=== PATIENT | male | born 1975 | race Caucasian/White ===

== ENCOUNTER 2017-03-03 17:04 | Inpatient (IN) | payer OTHER ==
--- NOTE | 2017-03-03 17:15 | PDOC ---
Rapid Medical Evaluation Medical Evaluation: 03/03/17 17:12 I have performed a brief in-person evaluation of this patient. The patient presents with a chief complaint of: R sided flank pain, hx of kidney stones 2003. +nausea, +chills, denies vomiting/diarrhea, took 400 mg motrin this am Pertinent physical exam findings: R CVA tenderness I have ordered the following: UA, UC, renal ultrasound The patient will proceed to the ED for further evaluation.
[2017-03-03 18:05] LABS: URINE APPEARANCE CLEAR; URINE BILIRUBIN NEGATIVE (NEGATIVE); URINE BLOOD 2+ (NEGATIVE); URINE COLOR LTYELLOW; URINE GLUCOSE (UA) NEGATIVE (NEGATIVE); URINE KETONE NEGATIVE (NEGATIVE); URINE NITRITE NEGATIVE (NEGATIVE); URINE PROTEIN NEGATIVE (NEGATIVE); URINE UROBILINOGEN NEGATIVE mg/dL (0.2-1.0)
[2017-03-03 18:24] LABS: URINE MUCUS RARE; URINE RBC 41; URINE WBC 1
[2017-03-03] MEDS ORDERED: KETOROLAC TROMETHAMINE 15 MG/ML VIAL IVPUSH ONE (18:51)
--- NOTE | 2017-03-03 19:23 | PDOC ---
Attending Attestation - Resident Resident Name: Sanket Ko - ED Attending Attestation I have performed the following: I have examined & evaluated the patient, The case was reviewed & discussed with the resident, I agree w/resident's findings & plan, Exceptions are as noted - HPI HPI: 03/03/17 19:24 41y/o M with h/o kidney stones p/w R flank pain that began this AM, similar to past renal colic. no injuries - Physicial Exam PE: 03/03/17 19:25 VSS, HR 88 + R cvat abd otherwise soft/nt/nd bs nl lungs clear - Medical Decision Making 03/03/17 19:25 41 y/o M with h/o kidney stones p/w his kidney stone pain, R flank began this AM. Well appearing, but still in some discomfort. UA with + blood, no infection Sono shows stones with mild hydro CTAP ordered, can d/c on pain meds and f/u
--- NOTE | 2017-03-03 19:31 | PDOC ---
History of Present Illness - General Chief Complaint: Pain, Acute Stated Complaint: PAIN Time Seen by Provider: 03/03/17 17:15 History Source: Patient Exam Limitations: No Limitations - History of Present Illness Initial Comments: 03/03/17 19:26 41M with history of kidney stones presents with right-sided flank pain since this am. Feels like stone pain to him. Took Motrin and felt better. Pain currently "not too bad" Urinated 4 times today. Some pain on urination. No hematuria. Past History - Past Medical History Allergies/Adverse Reactions: Allergies Allergy/AdvReac Type Severity Reaction Status Date / Time No Known Allergies Allergy Verified 03/03/17 17:13 Home Medications: Ambulatory Orders NK [No Known Home Medication] 03/03/17 COPD: No Kidney Stones: Yes - Suicide/Smoking/Psychosocial Hx Smoking History: Never smoked Hx Alcohol Use: No Drug/Substance Use Hx: No Review of Systems - Review of Systems Able to Perform ROS?: Yes Is the patient limited Tristanian proficient: No Constitutional: No: Symptoms Reported HEENTM: No: Symptoms Reported Respiratory: No: Symptoms reported Cardiac (ROS): No: Symptoms Reported ABD/GI: No: Symptoms Reported : Yes: See HPI, Flank Pain Musculoskeletal: No: Symptoms Reported Integumentary: No: Symptoms Reported *Physical Exam - Vital Signs Last Vital Signs Temp Pulse Resp BP Pulse Ox 98.2 F 99 H 16 144/82 99 03/03/17 17:11 03/03/17 17:11 03/03/17 17:11 03/03/17 17:11 03/03/17 17:11 - Physical Exam General Appearance: Yes: Nourished, Appropriately Dressed. No: Apparent Distress HEENT: positive: EOMI, ESTELITA, Normal ENT Inspection Neck: positive: Trachea midline, Normal Thyroid. negative: Tender Respiratory/Chest: positive: Lungs Clear, Normal Breath Sounds. negative: Chest Tender Cardiovascular: positive: Regular Rhythm, Regular Rate, S1, S2 Gastrointestinal/Abdominal: positive: Flat, Soft. negative: Tender Male Genitalia: negative: hematuria Musculoskeletal: positive: CVA Tenderness (R) Neurologic: positive: Fully Oriented, Alert, Normal Mood/Affect, Normal Response , Motor Strength 5/5 ED Treatment Course - ADDITIONAL ORDERS Additional order review: Laboratory Results 03/03/17 17:52 Urine Color Ltyellow Urine Appearance Clear Urine pH 5.0 Ur Specific [place] 1.024 Urine Protein Negative Urine Glucose (UA) Negative Urine Ketones Negative Urine Blood 2+ H Urine Nitrite Negative Urine Bilirubin Negative Urine Urobilinogen Negative Urine RBC 41 Urine WBC 1 Urine Mucus Rare - RADIOLOGY Radiology Studies Ordered: Category Date Time Status SPIRAL- RENAL-STONE CT [CT] Stat CT Scan 03/03/17 18:59 Ordered - Medications Given in the ED: ED Medications Discontinued Medications Generic Name Dose Route Start Last Admin Trade Name Vianey PRN Reason Stop Dose Admin Ketorolac Tromethamine 15 mg 03/03/17 18:51 03/03/17 19:05 Toradol Injection - IVPUSH 03/03/17 18:52 15 mg ONCE ONE Administration Medical Decision Making - Medical Decision Making 03/03/17 19:32 41M with hx of kidney stones presents to the ED with right flank pain. Ua positive for blood U/S + for non-obstructing kidney stone and mild hydronephrosis Pending spiral Ct renal to evaluate for stone size and location. Pain controlled with ketorolac. 03/03/17 19:34 [address] out to Dr. Calix *DC/Admit/Observation/Transfer Diagnosis at time of Disposition: Nephrolithiasis - Referrals Referrals: Mitesh Bui MD [Primary Care Provider] - - Patient Instructions - Post Discharge Activity
[2017-03-03] MEDS ORDERED: SODIUM CHLORIDE 1,000 ML IV STA (20:38)
--- NOTE | 2017-03-03 20:44 | PDOC ---
*Physical Exam - Vital Signs Last Vital Signs Temp Pulse Resp BP Pulse Ox 98.2 F 99 H 16 144/82 99 03/03/17 17:11 03/03/17 17:11 03/03/17 17:11 03/03/17 17:11 03/03/17 17:11 - Physical Exam Comments: 03/03/17 20:38 Gen:[id number], nad abd: soft, nt/nd +bs, minimal cva ttp, sitting up, comfortable ED Treatment Course - LABORATORY CBC & Chemistry Diagram: 03/03/17 20:37 03/03/17 20:37 - ADDITIONAL ORDERS Additional order review: Laboratory Results 03/03/17 17:52 Urine Color Ltyellow Urine Appearance Clear Urine pH 5.0 Ur Specific [place] 1.024 Urine Protein Negative Urine Glucose (UA) Negative Urine Ketones Negative Urine Blood 2+ H Urine Nitrite Negative Urine Bilirubin Negative Urine Urobilinogen Negative Urine RBC 41 Urine WBC 1 Urine Mucus Rare - Medications Given in the ED: ED Medications Discontinued Medications Generic Name Dose Route Start Last Admin Trade Name Vianey PRN Reason Stop Dose Admin Ketorolac Tromethamine 15 mg 03/03/17 18:51 03/03/17 19:05 Toradol Injection - IVPUSH 03/03/17 18:52 15 mg ONCE ONE Administration Medical Decision Making - Medical Decision Making 03/03/17 20:39 a/p: 41yo male with flank pain - signed out pending CT abd/pelvis -ct shows 8x7mm stone. Pt states pain controlled at this time. Labs sent and are pending. Moderate [place] on ct. No nausea or pain at this time. Will discuss with urology - Dr. Villarreal. 03/03/17 21:51 pt with Cr 1.5 and elevated WBC. Will keep for observation. Will call Dr. Partida - PMD is Dr. Bui. Pt agrees with the plan. *DC/Admit/Observation/Transfer Diagnosis at time of Disposition: Nephrolithiasis, Hydronephrosis - Discharge Dispostion Condition at time of disposition: Stable - Referrals Referrals: Mitesh Bui MD [Primary Care Provider] - - Patient Instructions - Post Discharge Activity
[2017-03-03 20:56] LABS: BASOPHIL 0.4 % (0-2.0); EOSINOPHIL 0.4 % (0-4.5); MCH 29.2 pg (25.7-33.7); MCHC 34.6 g/dl (32.0-35.9); MEAN CELL VOLUME 84.5 fl (80-96); MEAN PLT VOLUME 7.7 fl (7.5-11.1); NEUTROPHILS 79.9 % (42.8-82.8); PLATELET COUNT 196 K/MM3 (134-434); WHITE BLOOD COUNT 14.2 K/mm3 (4.0-10.0)
[2017-03-03 21:05] LABS: URINE LEUK ESTERASE Negative (NEGATIVE)
[2017-03-03 21:09] LABS: INR 1.1 (0.82-1.09); PROTHROMBIN TIME (PATIENT) 12.4 SEC (9.98-11.88)
[2017-03-03 21:19] LABS: ALBUMIN 4.1 g/dl (3.4-5.0); ALK PHOS 64 U/L (45-117); ANION GAP 9 (8-16); BILIRUBIN,TOTAL 0.9 mg/dL (0.2-1.0); CALCIUM 9.1 mg/dL (8.5-10.1); CO2 26 mmol/L (21-32); CREATININE 1.5 mg/dL (0.7-1.3); GLUCOSE,RANDOM 95 mg/dL (74-106); SGOT/AST 23 U/L (15-37); SGPT/ALT 31 U/L (12-78); TOT PROT 7.3 g/dl (6.4-8.2)
--- NOTE | 2017-03-03 21:39 | PDOC ---
*Physical Exam - Vital Signs Last Vital Signs Temp Pulse Resp BP Pulse Ox 98.2 F 99 H 16 144/82 99 03/03/17 17:11 03/03/17 17:11 03/03/17 17:11 03/03/17 17:11 03/03/17 17:11 - Physical Exam Comments: 03/03/17 21:31 General Appearance: Nourished. No Apparent Distress HEENT: EOMI, ESTELITA. Neck: No Cervical Lymphadenopathy Respiratory/Chest: Lungs Clear, Normal Breath Sounds. No Crackles, Rales, Rhonchi, Wheezing Cardiovascular: Regular Rhythm, Regular Rate. No Murmur, Gallops, Rubs Gastrointestinal/Abdominal: Normal Bowel Sounds, Soft. No Guarding, Rebound, Tenderness Musculoskeletal: No CVA Tenderness Extremity: Normal Capillary Refill Integumentary: Normal Color, Dry, Warm Neurologic: Fully Oriented, Alert, Normal Mood/Affect, Normal Response, ED Treatment Course - LABORATORY CBC & Chemistry Diagram: 03/03/17 20:37 03/03/17 20:37 - ADDITIONAL ORDERS Additional order review: Laboratory Results 03/03/17 03/03/17 03/03/17 20:37 20:37 17:52 PT with INR 12.40 H INR 1.10 PTT (Actin FS) 25.9 L Urine Color Ltyellow Urine Appearance Clear Urine pH 5.0 Ur Specific [place] 1.024 Urine Protein Negative Urine Glucose (UA) Negative Urine Ketones Negative Urine Blood 2+ H Urine Nitrite Negative Urine Bilirubin Negative Urine Urobilinogen Negative Ur Leukocyte Esterase Negative Urine RBC 41 Urine WBC 1 Urine Mucus Rare 03/03/17 20:37 RBC 4.79 MCV 84.5 MCHC 34.6 RDW 13.0 MPV 7.7 Neutrophils % 79.9 Lymphocytes % 12.1 Monocytes % 7.2 Eosinophils % 0.4 Basophils % 0.4 - Medications Given in the ED: ED Medications Discontinued Medications Generic Name Dose Route Start Last Admin Trade Name Freq PRN Reason Stop Dose Admin Ketorolac Tromethamine 15 mg 03/03/17 18:51 03/03/17 19:05 Toradol Injection - IVPUSH 03/03/17 18:52 15 mg ONCE ONE Administration Progress Note - Progress Note Progress Note: The patient is a 41 year old male with a history of kidney stones who presents for evaluation of right flank pain. UA was concerning for a kidney stone. Patient is pending a CT prior to dispo. Medical Decision Making - Medical Decision Making 03/03/17 22:00 CT abdomen demonstrates a 8mm obstructing stone in the proximal ureter with associated hydronephrosis as read by our radiologist. The patient's cbc is remarkable for a wbc elevation to 14.1. cmp is remarkable for a bun of 20 and creatinine of 1.5. Given the patient's new creatinine elevation with a large obstructing stone in the proximal ureter unlikely to pass on its own, we believe the patient requires observation admission for fluid hydration and further management. We discussed the case with Dr. Villarreal with urology who agreed with observation admission and will evaluate the patient tomorrow. We discussed the plan with the patient who voiced understanding and is agreeable. 03/03/17 22:[address] Partida who admits for Dr. Bui. Dr. Partida informed us that she is on vacation and requested that we admit to the hospitalists. 03/03/17 22:30 We discussed with the hospitalist team who accepted the patient for admission. *DC/Admit/Observation/Transfer Diagnosis at time of Disposition: Nephrolithiasis Hydronephrosis Qualifiers: Hydronephrosis type: with ureteral calculous obstruction Qualified Code(s): N13.2 - Hydronephrosis with renal and ureteral calculous obstruction - Discharge Dispostion Condition at time of disposition: Stable Admit: Yes - Referrals - Patient Instructions - Post Discharge Activity
[2017-03-03] MEDS ORDERED: morphine CARPU-JECT 2 MG/1 ML DISP.SYRIN IVPUSH PRN (23:12)
[2017-03-03] MEDS ORDERED: DOCUSATE SODIUM 100 MG CAPSULE (FP) PO PRN (23:12)
[2017-03-03] MEDS ORDERED: METOCLOPRAMIDE HCL INJECTION 10 MG/2 ML VIAL IVPUSH PRN (23:12)
[2017-03-03] MEDS: DEXTROSE 5%-NORMAL SALINE 1,000 ML IV SCH (23:21)
--- NOTE | 2017-03-03 23:33 | HP ---
CHIEF COMPLAINT: PCP: HISTORY OF PRESENT ILLNESS: 41 year old male c/o right flank pain x 1 day of duration . 8/10 in intensity the most. Non radiating . Associated with nausea. Denies hematuria. No fever ROS all systems reviewed and negative except from whats mentioned above . Recent Travel: NO PAST MEDICAL HISTORY: Nephrolithiasis PAST SURGICAL HISTORY: Social History: Smoking: No Alcohol:no Drugs: no Family History: Nephrolithiasis - brother Allergies No Known Allergies Allergy (Verified 03/03/17 17:13) HOME MEDICATIONS: Home Medications Medication Instructions Recorded NK [No Known Home Medication] 03/03/17 REVIEW OF SYSTEMS CONSTITUTIONAL: Absent: fever, chills, diaphoresis, generalized weakness, malaise, loss of appetite, weight change HEENT: Absent: rhinorrhea, nasal congestion, throat pain, throat swelling, difficulty swallowing, mouth swelling, ear pain, eye pain, visual changes CARDIOVASCULAR: Absent: chest pain, syncope, palpitations, irregular heart rate, lightheadedness , peripheral edema RESPIRATORY: Absent: cough, shortness of breath, dyspnea with exertion, orthopnea, wheezing, stridor, hemoptysis GASTROINTESTINAL: Absent: abdominal pain, abdominal distension, nausea, vomiting, diarrhea, constipation, melena, hematochezia GENITOURINARY: flank pain MUSCULOSKELETAL: Absent: myalgia, arthralgia, joint swelling, back pain, neck pain SKIN: Absent: rash, itching, pallor HEMATOLOGIC/IMMUNOLOGIC: Absent: easy bleeding, easy bruising, lymphadenopathy, frequent infections ENDOCRINE: Absent: unexplained weight gain, unexplained weight loss, heat intolerance, cold intolerance NEUROLOGIC: Absent: headache, focal weakness or paresthesias, dizziness, unsteady gait, seizure, mental status changes, bladder or bowel incontinence PSYCHIATRIC: Absent: anxiety, depression, suicidal or homicidal ideation, hallucinations. PHYSICAL EXAMINATION Vital Signs - 24 hr 03/03/17 17:11 Temperature 98.2 F Pulse Rate 99 H Respiratory 16 Rate Blood Pressure 144/82 O2 Sat by Pulse 99 Oximetry (%) GENERAL: Awake, alert, and fully oriented, in no acute distress. HEAD: Normal with no signs of trauma. EYES: Pupils equal, round and reactive to light, extraocular movements intact, sclera anicteric, conjunctiva clear. No lid lag. EARS, NOSE, THROAT: Ears normal, nares patent, oropharynx clear without exudates. Moist mucous membranes. NECK: Normal range of motion, supple without lymphadenopathy, JVD, or masses. LUNGS: Breath sounds equal, clear to auscultation bilaterally. No wheezes, and no crackles. No accessory muscle use. HEART: Regular rate and rhythm, normal S1 and S2 without murmur, rub or gallop. ABDOMEN: Soft, nontender, not distended, normoactive bowel sounds, no guarding, no rebound, no masses. No hepatomegaly or splenomegaly. MUSCULOSKELETAL: Normal range of motion at all joints. No bony deformities or tenderness. No CVA tenderness. UPPER EXTREMITIES: 2+ pulses, warm, well-perfused. No cyanosis. No clubbing. No peripheral edema. LOWER EXTREMITIES: 2+ pulses, warm, well-perfused. No calf tenderness. No peripheral edema. NEUROLOGICAL: Cranial nerves II-XII intact. Normal speech. Normal gait. PSYCHIATRIC: Cooperative. Good eye contact. Appropriate mood and affect. SKIN: Warm, dry, normal turgor, no rashes or lesions noted, normal capillary refill. Laboratory Results - last 24 hr 03/03/17 03/03/17 03/03/17 17:52 20:37 20:37 WBC 14.2 H RBC 4.79 Hgb 14.0 Hct 40.5 MCV 84.5 MCH 29.2 MCHC 34.6 RDW 13.0 Plt Count 196 MPV 7.7 Neutrophils % 79.9 Lymphocytes % 12.1 Monocytes % 7.2 Eosinophils % 0.4 Basophils % 0.4 PT with INR INR PTT (Actin FS) 25.9 L Sodium Potassium Chloride Carbon Dioxide Anion Gap BUN Creatinine Creat Clearance w eGFR Random Glucose Calcium Total Bilirubin AST ALT Alkaline Phosphatase Total Protein Albumin Urine Color Ltyellow Urine Appearance Clear Urine pH 5.0 Ur Specific [place] 1.024 Urine Protein Negative Urine Glucose (UA) Negative Urine Ketones Negative Urine Blood 2+ H Urine Nitrite Negative Urine Bilirubin Negative Urine Urobilinogen Negative Ur Leukocyte Esterase Negative Urine RBC 41 Urine WBC 1 Urine Mucus Rare 03/03/17 03/03/17 20:37 20:37 WBC RBC Hgb Hct MCV MCH MCHC RDW Plt Count MPV Neutrophils % Lymphocytes % Monocytes % Eosinophils % Basophils % PT with INR 12.40 H INR 1.10 PTT (Actin FS) Sodium 137 Potassium 3.9 Chloride 102 Carbon Dioxide 26 Anion Gap 9 BUN 20 H Creatinine 1.5 H Creat Clearance w eGFR 51.83 Random Glucose 95 Calcium 9.1 Total Bilirubin 0.9 AST 23 ALT 31 Alkaline Phosphatase 64 Total Protein 7.3 Albumin 4.1 Urine Color Urine Appearance Urine pH Ur Specific [place] Urine Protein Urine Glucose (UA) Urine Ketones Urine Blood Urine Nitrite Urine Bilirubin Urine Urobilinogen Ur Leukocyte Esterase Urine RBC Urine WBC Urine Mucus CT scan - 8mm prox right ureteral stone ASSESSMENT/PLAN: 1. Obstructive uropathy / nephrolithiasis - stone is above 5mm. Unlikely will pass without intervention . No evidence of UTI. Pain is controlled now after morphine . - flomax - urology eval / poss cystoscopy - NPO a/m - pain control with morphine as needed - Reglan for nausea - monitor CReatinine - IVF Visit type - Emergency Visit Emergency Visit: Yes Care time: The patient presented to the Emergency Department on the above date and was hospitalized for further evaluation of their emergent condition. - New Patient This patient is new to me today: Yes Date on this admission: 03/03/17 - Critical Care Critical Care patient: No
[2017-03-03] MEDS ORDERED: TAMSULOSIN HCL 0.4 MG CAP.ER.24H (FP) PO ONE (23:42)
[2017-03-04 00:47] VITALS: BMI 27.6
[2017-03-04] MEDS: morphine SULFATE 4 MG/ML VIAL IVPUSH PRN ×2 (01:07→15:04)
[2017-03-04 07:01] LABS: BASOPHIL 0.5 % (0-2.0); EOSINOPHIL 1.5 % (0-4.5); MCH 29.2 pg (25.7-33.7); MCHC 34.8 g/dl (32.0-35.9); MEAN PLT VOLUME 7.7 fl (7.5-11.1); NEUTROPHILS 73.4 % (42.8-82.8); PLATELET COUNT 179 K/MM3 (134-434); RDW 13.2 % (11.9-15.9); WHITE BLOOD COUNT 12.3 K/mm3 (4.0-10.0)
[2017-03-04 08:01] LABS: CO2 22 mmol/L (21-32); CREATININE 1.8 mg/dL (0.7-1.3); GLUCOSE,RANDOM 90 mg/dL (74-106)
[2017-03-04 08:02] LABS: ANION GAP 12 (8-16); CALCIUM 8.1 mg/dL (8.5-10.1)
[2017-03-04] MEDS: PANTOPRAZOLE SODIUM 40 MG VIAL IVPB SCH ×2 (09:32→09:37)
[2017-03-04] MEDS: DEXTROSE 5%-NORMAL SALINE 1,000 ML IV SCH (09:35)
--- NOTE | 2017-03-04 10:24 | PN ---
Physical Exam: SUBJECTIVE: Patient seen and examined at the bedside. He denies chest pain or shortness of breath. Called by Primary RN that pt had right sided chest/shoulder pain, ekg ordered. OBJECTIVE: NRS NSR 80s, patient denies chest pain, shortness of breath States he has chronic right shoulder pain when laying flat, pain now resolved Monitor Vital Signs Period Temp Pulse Resp BP Sys/Rubin Pulse Ox Last 24 Hr 98 F-98.6 F 81-99 16-20 121-144/62-82 97-99 GENERAL: The patient is awake, alert, and fully oriented, in no acute distress. HEAD: Normal with no signs of trauma. EYES: PERRL, extraocular movements intact, sclera anicteric, conjunctiva clear. No ptosis. ENT: Ears normal, nares patent, oropharynx clear without exudates, moist mucous membranes. NECK: Trachea midline, full range of motion, supple. LUNGS: Breath sounds equal, clear to auscultation bilaterally, no wheezes, no crackles, no accessory muscle use. HEART: Regular rate and rhythm, S1, S2 without murmur, rub or gallop. ABDOMEN: Soft, nontender, nondistended, normoactive bowel sounds, no guarding, no rebound, no hepatosplenomegaly, no masses. EXTREMITIES: 2+ pulses, warm, well-perfused, no edema. NEUROLOGICAL: Normal speech, gait not observed. PSYCH: Normal mood, normal affect. SKIN: Warm, dry, normal turgor, no rashes or lesions noted Laboratory Results - last 24 hr 03/03/17 03/03/17 03/03/17 17:52 20:37 20:37 WBC 14.2 H RBC 4.79 Hgb 14.0 Hct 40.5 MCV 84.5 MCH 29.2 MCHC 34.6 RDW 13.0 Plt Count 196 MPV 7.7 Neutrophils % 79.9 Lymphocytes % 12.1 Monocytes % 7.2 Eosinophils % 0.4 Basophils % 0.4 PT with INR INR PTT (Actin FS) 25.9 L Sodium Potassium Chloride Carbon Dioxide Anion Gap BUN Creatinine Creat Clearance w eGFR Random Glucose Calcium Total Bilirubin AST ALT Alkaline Phosphatase Total Protein Albumin Urine Color Ltyellow Urine Appearance Clear Urine pH 5.0 Ur Specific [place] 1.024 Urine Protein Negative Urine Glucose (UA) Negative Urine Ketones Negative Urine Blood 2+ H Urine Nitrite Negative Urine Bilirubin Negative Urine Urobilinogen Negative Ur Leukocyte Esterase Negative Urine RBC 41 Urine WBC 1 Urine Mucus Rare 03/03/17 03/03/17 03/04/17 20:37 20:37 06:10 WBC 12.3 H RBC 4.80 Hgb 14.0 Hct 40.3 MCV 84.0 MCH 29.2 MCHC 34.8 RDW 13.2 Plt Count 179 MPV 7.7 Neutrophils % 73.4 Lymphocytes % 14.8 D Monocytes % 9.8 Eosinophils % 1.5 D Basophils % 0.5 PT with INR 12.40 H INR 1.10 PTT (Actin FS) Sodium 137 Potassium 3.9 Chloride 102 Carbon Dioxide 26 Anion Gap 9 BUN 20 H Creatinine 1.5 H Creat Clearance w eGFR 51.83 Random Glucose 95 Calcium 9.1 Total Bilirubin 0.9 AST 23 ALT 31 Alkaline Phosphatase 64 Total Protein 7.3 Albumin 4.1 Urine Color Urine Appearance Urine pH Ur Specific [place] Urine Protein Urine Glucose (UA) Urine Ketones Urine Blood Urine Nitrite Urine Bilirubin Urine Urobilinogen Ur Leukocyte Esterase Urine RBC Urine WBC Urine Mucus 03/04/17 06:10 WBC RBC Hgb Hct MCV MCH MCHC RDW Plt Count MPV Neutrophils % Lymphocytes % Monocytes % Eosinophils % Basophils % PT with INR INR PTT (Actin FS) Sodium 140 Potassium 3.6 Chloride 106 Carbon Dioxide 22 Anion Gap 12 BUN 19 H Creatinine 1.8 H Creat Clearance w eGFR Random Glucose 90 Calcium 8.1 L Total Bilirubin AST ALT Alkaline Phosphatase Total Protein Albumin Urine Color Urine Appearance Urine pH Ur Specific [place] Urine Protein Urine Glucose (UA) Urine Ketones Urine Blood Urine Nitrite Urine Bilirubin Urine Urobilinogen Ur Leukocyte Esterase Urine RBC Urine WBC Urine Mucus Active Medications Generic Name Dose Route Start Last Admin Trade Name Freq PRN Reason Stop Dose Admin Docusate Sodium 100 mg 03/03/17 23:12 Colace - PO BID PRN CONSTIPATION Dextrose/Sodium Chloride 1,000 mls @ 100 mls/hr 03/03/17 23:15 03/04/17 09:35 D5-Ns - IV 100 mls/hr ASDIR LEONARD Administration Metoclopramide HCl 10 mg 03/03/17 23:12 Reglan Injection - IVPUSH Q6H PRN NAUSEA AND/OR VOMITING Morphine Sulfate 1 mg 03/04/17 00:49 03/04/17 01:07 Morphine Sulfate IVPUSH 1 mg Q4H PRN Administration PAIN Pantoprazole Sodium 40 mg 03/04/17 08:00 03/04/17 09:37 Protonix Iv IVPB Not Given DAILY LEONARD ASSESSMENT/PLAN: Patient is a 41 year old male with a past medical history of kidney stones. He presents to the ED on 03/03/2017 with an admitting diagnosis if hydronephrosis and calculus of the kidney. On admission, patient states his right flank pain began in the morning and progressed. Pain is currently controlled with the morphine. Imaging: CT/[facility], renal stone CT 03/03/2017: 8x7mm proximal right ureteral calculus within the proximal right ureteral consistent with a partial collecting calculus. Moderate degree of hydronephrosis associated with this stone. There is additional smaller calculi within both the right and left upper collecting systems, consistent with nonobstructing calculi. No evidence of left sided hydronephrosis. Kidney/Renal Ultrasound, Right Flank Pain 03/03/2017: Right nephrolithiasis and mild hydronephrosis. Renal: Nephrolithiasis, acute IV Fluids Monitor intake and output UA with no signs of infection, UC pending Monitor bun/creatinine Urology consulted for possible cystoscopy Pain controlled with morphine 1mg q4 Reglan for nausea Flomax 0.4mg daily KARMA, acute Creatinine 1.5, continue hydration, Trend bun/creat on IVF Monitor output F.E.N. Fluids: D5 NS @100 Electrolytes: monitor with bmp Nutrition: regular diet Prophylaxis: DVT: young ambulatory patient, deferred GI: Protonix Disposition: full code .
--- NOTE | 2017-03-04 11:08 | EKG ---
Test Reason : Blood Pressure : / mmHG Vent. Rate : 083 BPM Atrial Rate : 083 BPM P-R Int : 158 ms QRS Dur : 088 ms QT Int : 366 ms P-R-T Axes : 048 066 031 degrees QTc Int : 430 ms NORMAL SINUS RHYTHM NORMAL ECG NO PREVIOUS ECGS AVAILABLE Confirmed by GIGI SHUKLA MD ([id number]) on 03/04/2017 11:08:07 AM Referred By: Confirmed By:GIGI SHUKLA MD
[2017-03-04] MEDS: TAMSULOSIN HCL 0.4 MG CAP.ER.24H (FP) PO SCH (14:00)
[2017-03-05] MEDS: TAMSULOSIN HCL 0.4 MG CAP.ER.24H (FP) PO SCH (08:28)
[2017-03-05] MEDS: DEXTROSE 5%-NORMAL SALINE 1,000 ML IV SCH ×2 (08:29→18:55)
[2017-03-05 08:32] LABS: BASOPHIL 0.4 % (0-2.0); EOSINOPHIL 1.9 % (0-4.5); MCH 29.1 pg (25.7-33.7); MCHC 34.2 g/dl (32.0-35.9); MEAN CELL VOLUME 85.1 fl (80-96); MEAN PLT VOLUME 7.9 fl (7.5-11.1); NEUTROPHILS 67.8 % (42.8-82.8); PLATELET COUNT 180 K/MM3 (134-434); RDW 13.3 % (11.9-15.9)
[2017-03-05 09:00] LABS: ALBUMIN 3.3 g/dl (3.4-5.0); ALK PHOS 57 U/L (45-117); ANION GAP 11 (8-16); BILIRUBIN,TOTAL 0.8 mg/dL (0.2-1.0); CO2 24 mmol/L (21-32); CREATININE 1.3 mg/dL (0.7-1.3); GLUCOSE,RANDOM 88 mg/dL (74-106); SGOT/AST 17 U/L (15-37); SGPT/ALT 23 U/L (12-78); TOT PROT 6.5 g/dl (6.4-8.2)
[2017-03-05] MEDS: PANTOPRAZOLE SODIUM 40 MG VIAL IVPB SCH (09:28)
--- NOTE | 2017-03-05 09:41 | CON.GU ---
Consult Consult Specialty:: Urology Reason for Consultation:: Right ureteral clauluc right hydronephrosis - History of Present Illness Chief Complaint: Right sided back and flank pain. CT scan reveals 7mm right midureteral calclulus. - History Source History Provided By: Patient Limitations to Obtaining History: No Limitations - Past Medical History [employer]: No: Dementia Renal/: Yes: Renal Calculi Psych: No: Addictions - Past Surgical History Past Surgical History: Yes: None - Alcohol/Substance Use Hx Alcohol Use: No - Smoking History Smoking history: Never smoked Have you smoked in the past 12 months: No - Social History Usual Living Arrangement: With Spouse Home Medications - Allergies Allergies/Adverse Reactions: Allergies Allergy/AdvReac Type Severity Reaction Status Date / Time No Known Allergies Allergy Verified 03/03/17 17:13 - Home Medications Home Medications: Ambulatory Orders NK [No Known Home Medication] 03/03/17 Family Disease History - Family Disease History Family History: Unremarkable Review of Systems - Review of Systems Constitutional: reports: No Symptoms Eyes: reports: No Symptoms HENT: reports: No Symptoms Neck: reports: No Symptoms Cardiovascular: reports: No Symptoms Respiratory: reports: No Symptoms Gastrointestinal: reports: Abdominal Pain Genitourinary: reports: No Symptoms. denies: Hematuria Breasts: reports: No Symptoms Reported Musculoskeletal: reports: No Symptoms Integumentary: reports: No Symptoms Neurological: reports: No Symptoms Endocrine: reports: No Symptoms Hematology/Lymphatic: reports: No Symptoms Psychiatric: reports: No Symptoms Physical Exam- Vital Signs: Vital Signs Temperature 98.4 F 03/05/17 09:05 Pulse Rate 81 03/05/17 09:05 Respiratory Rate 19 03/05/17 09:05 Blood Pressure 126/61 03/05/17 09:05 O2 Sat by Pulse Oximetry (%) 98 03/05/17 09:05 Constitutional: Yes: Well Nourished, No Distress Eyes: Yes: WNL HENT: Yes: WNL Neck: Yes: WNL Cardiovascular: Yes: WNL Respiratory: Yes: WNL Gastrointestinal: Yes: WNL Renal/: Yes: CVA Tenderness - Right (mild right CVA tenderness to fist percussion). No: Bladder Distention, CVA Tenderness - Left Kidneys: Yes: WNL Pelvis: Yes: WNL Testicles: Yes: WNL Scrotum: Yes: WNL Penis: Yes: WNL Prostate Exam: Yes: Other (deferred) Musculoskeletal: Yes: WNL Extremities: Yes: WNL Integumentary: Yes: WNL Neurological: Yes: WNL ...Motor Strength: WNL Psychiatric: Yes: WNL Labs: CBC, BMP 03/05/17 07:00 03/05/17 07:00 Imaging - Results X-ray: Image Reviewed Cat Scan: Image Reviewed (KUB last eveninfg reveals no visible stone) Problem List - Problems (1) Ureteral calculus Code(s): N20.1 - CALCULUS OF URETER Assessment/Plan Pain and renal function are resolved. NO stone visible on KUB.' Right renal calcului and uretral calcus llikely uric acid. Needs to continue agressive hydration and urine alkalnization with NaHCO3 650 mg po tid. May be discharged on the flomax and alkalanization therapy. F/U after 1 week at my office for repeat imaging with CT scan.
[2017-03-05] MEDS ORDERED: BISACODYL 10 MG SUPP.RECT RC ONE (11:30)
[2017-03-05] MEDS: morphine SULFATE 4 MG/ML VIAL IVPUSH PRN (16:56)
[2017-03-05] MEDS ORDERED: morphine CARPU-JECT 2 MG/1 ML DISP.SYRIN IVPUSH PRN (18:39)
[2017-03-05] MEDS ORDERED: morphine CARPU-JECT 2 MG/1 ML DISP.SYRIN IVPUSH ONE (18:45)
[2017-03-05] MEDS ORDERED: morphine SULFATE 4 MG/ML VIAL IVPUSH PRN (19:06)
[2017-03-05] MEDS ORDERED: morphine SULFATE 4 MG/ML VIAL IVPUSH ONE (20:00)
[2017-03-05] MEDS: SODIUM BICARBONATE 650 MG TABLET PO SCH (21:06)
--- NOTE | 2017-03-05 21:33 | PN ---
Progress Note, Physician - Current Medication List Current Medications: Active Medications Docusate Sodium (Colace -) 100 mg PO BID PRN PRN Reason: CONSTIPATION Dextrose/Sodium Chloride (D5-Ns -) 1,000 mls @ 100 mls/hr IV ASDIR [facility] Last Admin: 03/05/17 18:55 Dose: 100 mls/hr Metoclopramide HCl (Reglan Injection -) 10 mg IVPUSH Q6H PRN PRN Reason: NAUSEA AND/OR VOMITING Morphine Sulfate (Morphine Sulfate) 2 mg IVPUSH Q4H PRN PRN Reason: PAIN Pantoprazole Sodium (Protonix Iv) 40 mg IVPB DAILY [facility] Last Admin: 03/05/17 09:28 Dose: 40 mg Sodium Bicarbonate (Sodium Bicarbonate -) 650 mg PO TID [facility] Last Admin: 03/05/17 21:06 Dose: 650 mg Tamsulosin HCl (Flomax -) 0.4 mg PO DAILY@0830 [facility] Last Admin: 03/05/17 08:28 Dose: 0.4 mg - Objective Vital Signs: Vital Signs Temperature 98.2 F 03/05/17 20:40 Pulse Rate 71 03/05/17 20:40 Respiratory Rate 20 03/05/17 20:40 Blood Pressure 126/74 03/05/17 20:40 O2 Sat by Pulse Oximetry (%) 98 03/05/17 10:00 Labs: CBC, BMP 03/05/17 07:00 03/05/17 07:00 INR, PTT INR 1.10 (0.82-1.09) 03/03/17 20:37 Problem List - Problems (1) ARF (acute renal failure) Code(s): N17.9 - ACUTE KIDNEY FAILURE, UNSPECIFIED (2) Nephrolithiasis Code(s): N20.0 - CALCULUS OF KIDNEY (3) Hydronephrosis Code(s): N13.30 - UNSPECIFIED HYDRONEPHROSIS Qualifiers: Hydronephrosis type: with ureteral calculous obstruction Qualified Code(s) : N13.2 - Hydronephrosis with renal and ureteral calculous obstruction
[2017-03-06] MEDS: SODIUM BICARBONATE 650 MG TABLET PO SCH ×2 (06:12→14:31)
[2017-03-06] MEDS: DEXTROSE 5%-NORMAL SALINE 1,000 ML IV SCH (06:12)
[2017-03-06] MEDS: TAMSULOSIN HCL 0.4 MG CAP.ER.24H (FP) PO SCH (08:59)
[2017-03-06] MEDS: PANTOPRAZOLE SODIUM 40 MG VIAL IVPB SCH (09:49)
[2017-03-06 13:27] VITALS: BP 122/72; PULSE 71; TEMP 98.1
--- NOTE | 2017-03-09 17:17 | DS ---
Physical Examination Vital Signs: Vital Signs Temperature 98.1 F 03/06/17 09:00 Pulse Rate 71 03/06/17 09:00 Respiratory Rate 20 03/06/17 09:00 Blood Pressure 122/72 03/06/17 09:00 O2 Sat by Pulse Oximetry (%) 98 03/06/17 09:00 Constitutional: Yes: No Distress Neck: Yes: WNL, Supple Cardiovascular: Yes: WNL, Regular Rate and Rhythm Respiratory: Yes: WNL, Regular, CTA Bilaterally Gastrointestinal: Yes: WNL, Normal Bowel Sounds, Soft Labs: CBC, BMP 03/05/17 07:00 03/05/17 07:00 Discharge Summary Reason For Visit: HYDRONEPHROSIS/CALCULUS OF KIDNEY Nephroliathiasis Acute renal insufficiency Hospital Course: Pt is a 41 y/o male who presented to the ER initially bc of flank pain. Pt was given IVF and flomax. Pt also found to have elevated creatinine. Ct scan abd showed rt ureteral calculus w/ moderate hydronephrosis. Pt was also seen by uro and cleared pt for dc. Pt to f/u in office. Pt encouraged to increase fluids Condition: Good - Instructions Diet, Activity, Other Instructions: Regular diet See Dr Villarreal in [address] Bui in 1 week Referrals: Mitesh Bui MD [Primary Care Provider] - Honorio Villarreal MD [Staff Physician] - Disposition: HOME - Home Medications Comprehensive Discharge Medication List: Ambulatory Orders Sodium Bicarbonate - 650 mg PO TID #60 tablet 03/06/17 Sodium Bicarbonate - 650 mg PO TID #60 tablet 03/06/17 Tamsulosin HCl [Flomax -] 0.4 mg PO DAILY@0830 #30 cap.er.24h 03/06/17 Tamsulosin HCl [Flomax] 0.4 mg PO DAILY #30 cap.er.24h 03/06/17
== END 2017-03-06 14:52 | disposition home or self-care (01) | DRG 460 ==
LOC: JER 17:04 → JERBED 22:32 → UNDOADMOB 03-04 00:01 → JERBED 03-04 00:01 → J6S 03-04 00:25 → OBSVTOIN 03-04 16:28
PROVIDERS: ADMIT Internal Medicine; ATTEND Internal Medicine
DX: N17.9 Acute kidney failure, unspecified (principal); N13.2 Hydronephrosis with renal and ureteral calculous obstruction
CPT/HCPCS: 36415; 74000-TC; 74176; 76775-TC; 80048; 80053; 81003; 81015; 85025; 85610; 85730; 87086; 93005; 93010; 99284-25; G0378

== ENCOUNTER 2017-12-19 18:01 | Inpatient (IN) | payer OTHER ==
--- NOTE | 2017-12-19 18:10 | PDOC ---
Rapid Medical Evaluation Time Seen by Provider: 12/19/17 18:08 Medical Evaluation: Allergies Allergy/AdvReac Type Severity Reaction Status Date / Time No Known Allergies Allergy Verified 12/19/17 18:08 12/19/17 18:08 42 year old male with kidney stones s/p lithotripsy and stent placement in March 2017. Stent still in situ as patient's urologist does not accept his new insurance. Presents today complaining of right flank pain, hematuria, and subjective fevers/chills. Alert oriented, appears very uncomfortable. + Right CVA tenderness. V/s unremarkable. -Labs including CBC, CMP -UA/culture -To Main ED for further evaluation Discharge Disposition - Diagnosis Flank pain - Referrals - Patient Instructions - Post Discharge Activity
--- NOTE | 2017-12-19 19:46 | PDOC ---
History of Present Illness - General Chief Complaint: Pain, Acute Stated Complaint: PAIN, ACUTE Time Seen by Provider: 12/19/17 18:08 - History of Present Illness Initial Comments: 12/19/17 20:17 The patient is a 42 year old male with a history of kidney stones who presents for evaluation of right flank pain and hematuria. The patient reports that he has been having intermittent flank pain over the past 2 months that has become more persistent with associated hematuria and intermittent subjective fevers prompting his presentation to the ED for further evaluation. He reports that he had lithotrypsy and stenting 8 months ago, but has never had the stent removed. He otherwise denies chills, SOB, chest pain, nausea, vomiting, abdominal pain, or changes with bowel movements. Past History - Past Medical History Allergies/Adverse Reactions: Allergies Allergy/AdvReac Type Severity Reaction Status Date / Time No Known Allergies Allergy Verified 12/19/17 18:08 Home Medications: Ambulatory Orders NK [No Known Home Medication] 12/19/17 COPD: No Kidney Stones: Yes - Suicide/Smoking/Psychosocial Hx Smoking History: Never smoked Have you smoked in the past 12 months: No Information on smoking cessation initiated: No Hx Alcohol Use: No Drug/Substance Use Hx: No Substance Use Type: None Hx Substance Use Treatment: No Review of Systems - Review of Systems Comments:: 12/20/17 00:59 Constitutional: No fevers, chills, fatigue, malaise HEENT: No Rhinorrhea, nasal congestion, visual changes Cardiovascular: No chest pain, syncope, palpitations, lightheadedness Respiratory: No Cough, SOB, Hemoptysis, Gastrointestinal: No Abdominal pain, Nausea, Vomiting, Constipation, Diarrhea, Melena Genitourinary: Right Flank Pain, Hematuria. No Dysuria, Frequency, Urgency, Hesitancy, Musculoskeletal: No Myalgia, arthralgia Skin: No rashes, itching, bruising, pallor Neurologic: No Headache, Dizziness, Numbness, Weakness, or Tingling Psychiatric: No Hallucinations. No SI or HI *Physical Exam - Vital Signs Last Vital Signs Temp Pulse Resp BP Pulse Ox 98.7 F 96 H 18 140/87 100 12/19/17 18:09 12/19/17 18:09 12/19/17 18:09 12/19/17 18:09 12/19/17 18:09 - Physical Exam Comments: 12/20/17 01:00 General Appearance: Nourished. No Apparent Distress HEENT: No Pharyngeal Erythema, Tonsillar Exudate, Tonsillar Erythema Neck: No Cervical Lymphadenopathy Respiratory/Chest: Lungs Clear, Normal Breath Sounds. No Crackles, Rales, Rhonchi, Wheezing Cardiovascular: Regular Rhythm, Regular Rate. No Murmur, Gallops, Rubs Gastrointestinal/Abdominal: Normal Bowel Sounds, Soft. No Guarding, Rebound, Tenderness Musculoskeletal: Mild Right CVA Tenderness. No Left CVA Tenderness Extremity: Normal Capillary Refill Integumentary: Normal Color, Dry, Warm Neurologic: Fully Oriented, Alert, Normal Mood/Affect, Normal Response, ED Treatment Course - LABORATORY CBC & Chemistry Diagram: 12/19/17 19:40 12/19/17 19:40 Medical Decision Making - Medical Decision Making 12/20/17 01:01 The patient is a 42 year old male with a history of kidney stones who presents for evaluation of right flank pain and hematuria. Differential includes but is not limited to: Kidney Stone, UTI, Infections, Metabolic Derangement. Given the patient's history and physical exam, we will obtain a cbc, cmp, ua, urine culture, renal CT to evaluate further. We will continue to monitor and reassess while here in the ED. 12/20/17 01:02 CBC demonstrates a wbc of 11.2. CMP is unremarkable. UA demonstrates trace leuk exterase with elevated wbc and rbc. Renal CT demonstrates right hydronephrosis and hydroureter possible due to a non-functional stent with bertin- uretal stranding possibly due to an inflammatory process as read by our radiologist. Given the patient's ct results and urine results, we believe he requires observation admission for urologic evaluation and iv antibiotics. We will treat with zosyn here in the ED. We discussed the case with the admitting team who accepted the patient for admission. *DC/Admit/Observation/Transfer Diagnosis at time of Disposition: Flank pain Hydronephrosis Qualifiers: Hydronephrosis type: unspecified Qualified Code(s): N13.30 - Unspecified hydronephrosis UTI (urinary tract infection) Qualifiers: Urinary tract infection type: site unspecified Hematuria presence: with hematuria Qualified Code(s): N39.0 - Urinary tract infection, site not specified - Discharge Dispostion Condition at time of disposition: Stable Decision to Admit order: Yes - Referrals Referrals: Mitesh Bui MD [Primary Care Provider] - - Patient Instructions - Post Discharge Activity
[2017-12-19 19:57] LABS: BASO % 1.1 % (0-2.0); EOS % 3.1 % (0-4.5); HEMATOCRIT 41.5 % (35.4-49); HEMOGLOBIN 14.3 GM/dL (11.7-16.9); LYMPH % 32.7 % (8-40); MCH 29.8 pg (25.7-33.7); MCHC 34.6 g/dl (32.0-35.9); MEAN PLT VOLUME 7.5 fl (7.5-11.1); MONO % 8.2 % (3.8-10.2); NEUT % 54.9 % (42.8-82.8); PLATELET COUNT 232 K/MM3 (134-434); RBC 4.82 M/mm3 (4.00-5.60); RDW 13.3 % (11.9-15.9); WHITE BLOOD COUNT 11.2 K/mm3 (4.0-10.0)
--- NOTE | 2017-12-19 19:57 | PDOC ---
Attending Attestation - Resident Resident Name: Live Calix - ED Attending Attestation I have performed the following: I have examined & evaluated the patient, The case was reviewed & discussed with the resident, I agree w/resident's findings & plan, Exceptions are as noted - HPI HPI: 12/19/17 19:56 42 yo male with h/o kidney stones p/w hematuria,subjective fevers and rt flank pain - Physicial Exam PE: 12/19/17 20:09 42 yo male with c/o of 2 months of intermittent rt flank pain and hematuria head ncat neck supple lungs cta b/l cvs [id number] abd no rebound,no guarding cva tenderness, rt flank pain ext no edema,no erythema skin warm . dry neuro axox3,no ataxia,motor strength 5/5 psych appropriate - Medical Decision Making 12/19/17 20:13 pt states he was admitted w similar complaints in Feb 2017 plan UA,spiral ct ,labs,re assess <Mnóica Braswell - Last Filed: 12/19/17 20:13> - HPI HPI: 12/19/17 23:23 Patient is a 42 year old male with a significant past medical history of Nephrolithiasis, who presents to the ED with complaints of right flank pain that began x2 months ago. Patient reports experiencing intermittent right flank pain over the last x2 moths that he states has gradually become more frequent prompting him to come into the ED for further evaluation. He reports experiencing associated symptoms of hematuria and subjective fevers. Denies chest pain, sob. Denies nausea,vomiting. Denies contact with sick individuals, out of state traveling. Denies dysuria, hematuria. Denies any other symptoms. Allergies: None Social history: No smoking. No alcohol. No illicit drugs. Surgical history: None PMD: Dr. Mitesh Bui <Shiva Jones - Last Filed: 12/19/17 23:23>
[2017-12-19 20:20] LABS: ANION GAP 8 MMOL/L (8-16); BLOOD UREA NITROGEN 18 mg/dL (7-18); CALCIUM 9.5 mg/dL (8.5-10.1); CHLORIDE 105 mmol/L (98-107); CO2 30 mmol/L (21-32); CREATININE 1.2 mg/dL (0.7-1.3); GLUCOSE,RANDOM 79 mg/dL (74-106); POTASSIUM 4.2 mmol/L (3.5-5.1); SGOT/AST 19 U/L (15-37); SGPT/ALT 25 U/L (12-78); SODIUM 143 mmol/L (136-145)
[2017-12-19 20:24] LABS: ALK PHOS 60 U/L (45-117); BILIRUBIN,TOTAL 0.3 mg/dL (0.2-1.0); TOT PROT 7.4 g/dl (6.4-8.2)
[2017-12-19 21:08] LABS: URINE APPEARANCE CLOUDY; URINE BILIRUBIN NEGATIVE (<2.0 mg/dL); URINE COLOR RED; URINE GLUCOSE (UA) NEGATIVE (NEGATIVE); URINE KETONE NEGATIVE (NEGATIVE); URINE LEUK ESTERASE TRACE (NEGATIVE); URINE NITRITE NEGATIVE (NEGATIVE); URINE UROBILINOGEN NEGATIVE mg/dL (0.2-1.0)
[2017-12-19 21:29] LABS: URINE PROTEIN 2+ (NEGATIVE)
[2017-12-19 21:30] LABS: YEAST MANY
[2017-12-19] MEDS ORDERED: PIPERACILLIN/TAZOB 3.375 GM 3.375 GM in DEXTROSE 5%-WATER - 50 ML IVPB ONE (21:36)
[2017-12-19] MEDS ORDERED: PIPERACILLIN/TAZOB 3.375 GM 3.375 GM/50 ML BAG IVPB ONE (22:05)
[2017-12-20 03:01] VITALS: BMI 27.8
--- NOTE | 2017-12-20 09:45 | EKG ---
Test Reason : Blood Pressure : / mmHG Vent. Rate : 068 BPM Atrial Rate : 068 BPM P-R Int : 170 ms QRS Dur : 098 ms QT Int : 396 ms P-R-T Axes : 060 074 053 degrees QTc Int : 421 ms NORMAL SINUS RHYTHM WITH SINUS ARRHYTHMIA EARLY REPOLARIZATION NORMAL ECG WHEN COMPARED WITH ECG OF 04-MAR-2017 09:53, NONSPECIFIC T WAVE ABNORMALITY NO LONGER EVIDENT IN INFERIOR LEADS Confirmed by John Tejada MD ([id number]) on 12/20/2017 9:45:13 AM Referred By: Confirmed By:John Tejada MD
[2017-12-20] MEDS ORDERED: morphine CARPU-JECT 2 MG/1 ML DISP.SYRIN IVPUSH PRN (15:08)
[2017-12-20] MEDS ORDERED: CEFTRIAXONE 1 GM in DEXTROSE 5%-WATER - 50 ML IVPB SCH (15:15)
--- NOTE | 2017-12-20 15:44 | CON.ID ---
Consult Consult Specialty:: infectious diseases Referred by:: Reason for Consultation:: uti,hematuria - History of Present Illness Chief Complaint: abd pain and heamturia History of Present Illness: 42 year old male with a significant past medical history of Nephrolithiasis, admitted with complaints of right flank pain that began x2 months ago. Patient reports experiencing intermittent right flank pain over the last x2 moths that he states has gradually become more frequent prompting him to come into the ED for further evaluation. He reports experiencing associated symptoms of hematuria and subjective fevers. Denies chest pain, sob. Denies nausea,vomiting. Denies contact with sick individuals, out of state traveling. Denies dysuria, hematuria. Denies any other symptoms. according to the patient he was seeing urology before and the plan was to do laser,but then he lost his insurance and then he got the insurance but with that he had to change doctors according to him the second doctor said he could not do the procedure because he had seen the first doctor meanwhile he sais he started having hematuria and flank pain and came to the hospital currently the patient does not look in any obvious discomfort patient has had a rt nephroureteral stent placed - History Source History Provided By: Patient Limitations to Obtaining History: No Limitations - Past Medical History Renal/: Yes: Renal Calculi - Past Surgical History Past Surgical History: Yes: None - Alcohol/Substance Use Hx Alcohol Use: No - Smoking History Smoking history: Never smoked Have you smoked in the past 12 months: No - Social History Usual Living Arrangement: With Spouse Home Medications - Allergies Allergies/Adverse Reactions: Allergies Allergy/AdvReac Type Severity Reaction Status Date / Time No Known Allergies Allergy Verified 12/19/17 18:08 - Home Medications Home Medications: Ambulatory Orders NK [No Known Home Medication] 12/19/17 Review of Systems - Review of Systems Constitutional: reports: No Symptoms Eyes: reports: No Symptoms HENT: reports: No Symptoms Neck: reports: No Symptoms Cardiovascular: reports: No Symptoms Respiratory: reports: No Symptoms Gastrointestinal: reports: No Symptoms Genitourinary: reports: Flank Pain, Other Musculoskeletal: reports: No Symptoms Integumentary: reports: No Symptoms Neurological: reports: No Symptoms Endocrine: reports: No Symptoms Hematology/Lymphatic: reports: No Symptoms Psychiatric: reports: No Symptoms Physical Exam Vital Signs: Vital Signs Temperature 97.8 F 12/20/17 15:28 Pulse Rate 75 12/20/17 15:28 Respiratory Rate 18 12/20/17 15:28 Blood Pressure 133/95 12/20/17 15:28 O2 Sat by Pulse Oximetry (%) 100 12/20/17 01:40 Constitutional: Yes: Well Nourished, No Distress, Calm Eyes: Yes: Conjunctiva Clear Cardiovascular: Yes: Regular Rate and Rhythm Respiratory: Yes: Regular, CTA Bilaterally Gastrointestinal: Yes: Normal Bowel Sounds, Soft Renal/: Yes: CVA Tenderness - Right, Hematuria Musculoskeletal: Yes: WNL Extremities: Yes: WNL Neurological: Yes: Alert, Oriented Psychiatric: Yes: Alert, Oriented Labs: CBC, BMP 12/19/17 19:40 12/19/17 19:40 Imaging - Results Cat Scan: Report Reviewed, Image Reviewed Assessment/Plan this patient with kidney issues and now with hematuria coming to the hospital looking at the imaging studies patient probably has obstructive symptoms and also pyelo pyelo hematuria ureteral stone flank pain plan will switch to [facility] urology to see the patient await for all cx reports
--- NOTE | 2017-12-20 17:06 | HP ---
Admitting History and Physical - Past Medical History Renal/: Yes: Renal Calculi - Past Surgical History Past Surgical History: Yes: None - Smoking History Smoking history: Never smoked Have you smoked in the past 12 months: No - Alcohol/Substance Use Hx Alcohol Use: No Home Medications - Allergies Allergies/Adverse Reactions: Allergies Allergy/AdvReac Type Severity Reaction Status Date / Time No Known Allergies Allergy Verified 12/19/17 18:08 - Home Medications Home Medications: Ambulatory Orders NK [No Known Home Medication] 12/19/17 Physical Examination Vital Signs: Vital Signs Temperature 97.8 F 12/20/17 15:28 Pulse Rate 75 12/20/17 15:28 Respiratory Rate 18 12/20/17 15:28 Blood Pressure 133/95 12/20/17 15:28 O2 Sat by Pulse Oximetry (%) 100 12/20/17 01:40 Labs: CBC, BMP 12/19/17 19:40 12/19/17 19:40
[2017-12-20] MEDS ORDERED: PIPERACILLIN/TAZOBACTAM 3.375 GM VIAL IVPB ONE (17:16)
[2017-12-20] MEDS ORDERED: DEXTROSE 5%-WATER - 50 ML IVPB ONE (17:17)
--- NOTE | 2017-12-20 17:17 | PN ---
Progress Note (short form) - Note Progress Note: UROLOGY NOTE 42 Y/O Male patient with history of bilateral renal stone S/P RT jj stent insertion 03/2017 admitted with UTI and gross hematuria, CT-Scan RT jj stent in place, Left UPJ stone 4mm no hydro. WBC 12, S.Creat. 1.2. He is on IV ZOSYN Plan: keep IV ZOSYN will schedule him for RT jj stent removal and left laser lithotripsy.
[2017-12-20] MEDS: PIPERACILLIN/TAZOB 3.375 GM 3.375 GM in DEXTROSE 5%-WATER - 50 ML IVPB SCH (17:43)
[2017-12-20] MEDS: DEXTROSE 5%-0.45% SALINE 1,000 ML IV SCH (17:43)
[2017-12-21] MEDS ORDERED: PIPERACILLIN/TAZOBACTAM 3.375 GM VIAL IVPB ONE ×4 (01:11→17:47)
[2017-12-21] MEDS ORDERED: DEXTROSE 5%-WATER - 50 ML IVPB ONE ×4 (01:11→17:47)
[2017-12-21] MEDS: PIPERACILLIN/TAZOB 3.375 GM 3.375 GM in DEXTROSE 5%-WATER - 50 ML IVPB SCH ×3 (01:24→18:22)
[2017-12-21] MEDS: DEXTROSE 5%-0.45% SALINE 1,000 ML IV SCH ×2 (10:34→18:21)
[2017-12-21 11:25] LABS: HEMATOCRIT 43.5 % (35.4-49); HEMOGLOBIN 14.9 GM/dL (11.7-16.9); MCH 29.5 pg (25.7-33.7); MCHC 34.2 g/dl (32.0-35.9); MEAN CELL VOLUME 86.4 fl (80-96); MEAN PLT VOLUME 7.6 fl (7.5-11.1); PLATELET COUNT 213 K/MM3 (134-434); RBC 5.04 M/mm3 (4.00-5.60); RDW 13.4 % (11.9-15.9); WHITE BLOOD COUNT 7.3 K/mm3 (4.0-10.0)
[2017-12-21 11:52] LABS: ALBUMIN 3.5 g/dl (3.4-5.0); ALK PHOS 56 U/L (45-117); ANION GAP 4 MMOL/L (8-16); BILIRUBIN,TOTAL 0.6 mg/dL (0.2-1.0); BLOOD UREA NITROGEN 12 mg/dL (7-18); CALCIUM 8.7 mg/dL (8.5-10.1); CHLORIDE 105 mmol/L (98-107); CO2 29 mmol/L (21-32); CREATININE 1.1 mg/dL (0.7-1.3); GLUCOSE,RANDOM 97 mg/dL (74-106); POTASSIUM 4.1 mmol/L (3.5-5.1); SGOT/AST 17 U/L (15-37); SGPT/ALT 20 U/L (12-78); SODIUM 138 mmol/L (136-145); TOT PROT 6.7 g/dl (6.4-8.2)
--- NOTE | 2017-12-21 12:43 | PN ---
Progress Note, Physician History of Present Illness: stable doing well pain better still with hematuria - Current Medication List Current Medications: Active Medications Dextrose/Sodium Chloride (D5-1/2ns -) 1,000 mls @ 75 mls/hr IV ASDIR [facility] Last Admin: 12/21/17 10:34 Dose: 75 mls/hr Piperacillin Sod/Tazobactam (Sod 3.375 gm/ Dextrose) 50 mls @ 100 mls/hr IVPB Q8H-IV [facility]; Protocol Last Admin: 12/21/17 10:00 Dose: 100 mls/hr Morphine Sulfate (Morphine Injection -) 2 mg IVPUSH Q6H PRN PRN Reason: pain - Objective Vital Signs: Vital Signs Temperature 98 F 12/21/17 07:02 Pulse Rate 57 L 12/21/17 07:02 Respiratory Rate 20 12/21/17 07:02 Blood Pressure 110/60 12/21/17 07:02 O2 Sat by Pulse Oximetry (%) 100 12/20/17 01:40 Constitutional: Yes: No Distress, Calm Cardiovascular: Yes: Regular Rate and Rhythm Respiratory: Yes: Regular, CTA Bilaterally Gastrointestinal: Yes: Normal Bowel Sounds, Soft Musculoskeletal: Yes: WNL Extremities: Yes: WNL Neurological: Yes: Alert, Oriented Psychiatric: Yes: Alert, Oriented Labs: CBC, BMP 12/21/17 11:15 12/21/17 11:15 Assessment/Plan pyelo hematuria ureteral stone flank pain hydronephrosis plan continue abx plan for or tomorrow rest continue current mgmt
--- NOTE | 2017-12-21 21:03 | PN ---
Progress Note, Physician - Current Medication List Current Medications: Active Medications Dextrose/Sodium Chloride (D5-1/2ns -) 1,000 mls @ 75 mls/hr IV ASDIR [facility] Last Admin: 12/21/17 18:21 Dose: Not Given Piperacillin Sod/Tazobactam (Sod 3.375 gm/ Dextrose) 50 mls @ 100 mls/hr IVPB Q8H-IV [facility]; Protocol Last Admin: 12/21/17 18:22 Dose: 100 mls/hr Morphine Sulfate (Morphine Injection -) 2 mg IVPUSH Q6H PRN PRN Reason: pain - Objective Vital Signs: Vital Signs Temperature 98.1 F 12/21/17 16:30 Pulse Rate 76 12/21/17 16:30 Respiratory Rate 20 12/21/17 16:30 Blood Pressure 118/68 12/21/17 16:30 O2 Sat by Pulse Oximetry (%) 100 12/20/17 01:40 Labs: CBC, BMP 12/21/17 11:15 12/21/17 11:15
[2017-12-22] MEDS: DEXTROSE 5%-0.45% SALINE 1,000 ML IV SCH ×2 (00:40→18:06)
[2017-12-22] MEDS: PIPERACILLIN/TAZOB 3.375 GM 3.375 GM in DEXTROSE 5%-WATER - 50 ML IVPB SCH ×3 (01:34→18:06)
[2017-12-22] MEDS ORDERED: INSULIN (NOVOLOG) ASPART 100 UNITS/ML 10ML VIAL ONE (06:36)
[2017-12-22] MEDS ORDERED: PIPERACILLIN/TAZOBACTAM 3.375 GM VIAL IVPB ONE (09:18)
[2017-12-22] MEDS ORDERED: DEXTROSE 5%-WATER - 50 ML IVPB ONE (09:18)
--- NOTE | 2017-12-22 10:33 | PN ---
Progress Note, Physician History of Present Illness: stable doing well no complaints - Current Medication List Current Medications: Active Medications Dextrose/Sodium Chloride (D5-1/2ns -) 1,000 mls @ 75 mls/hr IV ASDIR [facility] Last Admin: 12/22/17 00:40 Dose: 75 mls/hr Piperacillin Sod/Tazobactam (Sod 3.375 gm/ Dextrose) 50 mls @ 100 mls/hr IVPB Q8H-IV [facility]; Protocol Last Admin: 12/22/17 09:41 Dose: 100 mls/hr Morphine Sulfate (Morphine Injection -) 2 mg IVPUSH Q6H PRN PRN Reason: pain - Objective Vital Signs: Vital Signs Temperature 98.2 F 12/22/17 06:56 Pulse Rate 69 12/22/17 06:56 Respiratory Rate 20 12/22/17 06:56 Blood Pressure 112/53 12/22/17 06:56 O2 Sat by Pulse Oximetry (%) 100 12/20/17 01:40 Constitutional: Yes: No Distress, Calm Cardiovascular: Yes: Regular Rate and Rhythm Respiratory: Yes: Regular, CTA Bilaterally Gastrointestinal: Yes: Normal Bowel Sounds, Soft Genitourinary: Yes: Hematuria (resolving) Musculoskeletal: Yes: WNL Extremities: Yes: WNL Integumentary: Yes: WNL Neurological: Yes: Alert, Oriented Psychiatric: Yes: Alert, Oriented Labs: CBC, BMP 12/21/17 11:15 12/21/17 11:15 Assessment/Plan pyelo hematuria ureteral stone flank pain hydronephrosis plan continue abx plan for or today rest as per the team and urology
[2017-12-22] MEDS ORDERED: PT OWN MED DRAWER 7, Y5N ONE (18:03)
--- NOTE | 2017-12-22 21:52 | PN ---
Progress Note, Physician - Current Medication List Current Medications: Active Medications Dextrose/Sodium Chloride (D5-1/2ns -) 1,000 mls @ 75 mls/hr IV ASDIR [facility] Last Admin: 12/22/17 18:06 Dose: 75 mls/hr Piperacillin Sod/Tazobactam (Sod 3.375 gm/ Dextrose) 100 mls @ 200 mls/hr IVPB Q8H-IV [facility]; Protocol Morphine Sulfate (Morphine Injection -) 2 mg IVPUSH Q6H PRN PRN Reason: pain - Objective Vital Signs: Vital Signs Temperature 98.1 F 12/22/17 21:36 Pulse Rate 71 12/22/17 21:36 Respiratory Rate 18 12/22/17 21:36 Blood Pressure 117/66 12/22/17 21:36 O2 Sat by Pulse Oximetry (%) 99 12/22/17 09:00 Labs: CBC, BMP 12/21/17 11:15 12/21/17 11:15
[2017-12-23] MEDS ORDERED: PIPERACILLIN/TAZOBACTAM 3.375 GM VIAL IVPB ONE ×3 (01:32→17:00)
[2017-12-23] MEDS ORDERED: DEXTROSE 5%-WATER 100 ML IVPB ONE ×3 (01:33→17:01)
[2017-12-23] MEDS: PIPERACILLIN/TAZOB 3.375 GM 3.375 GM in DEXTROSE 5%-WATER 100 ML IVPB SCH ×3 (01:42→18:00)
[2017-12-23] MEDS: DEXTROSE 5%-0.45% SALINE 1,000 ML IV SCH ×2 (05:52→17:10)
--- NOTE | 2017-12-23 10:12 | PN ---
Progress Note, Physician History of Present Illness: patient stable still with some hematuria plan for or today - Current Medication List Current Medications: Active Medications Dextrose/Sodium Chloride (D5-1/2ns -) 1,000 mls @ 75 mls/hr IV ASDIR [facility] Last Admin: 12/23/17 05:52 Dose: 75 mls/hr Piperacillin Sod/Tazobactam (Sod 3.375 gm/ Dextrose) 100 mls @ 200 mls/hr IVPB Q8H-IV [facility]; Protocol Last Admin: 12/23/17 01:42 Dose: 200 mls/hr Morphine Sulfate (Morphine Injection -) 2 mg IVPUSH Q6H PRN PRN Reason: pain - Objective Vital Signs: Vital Signs Temperature 98.3 F 12/23/17 06:00 Pulse Rate 69 12/23/17 06:00 Respiratory Rate 16 12/23/17 06:00 Blood Pressure 102/66 12/23/17 06:00 O2 Sat by Pulse Oximetry (%) 100 12/22/17 23:15 Constitutional: Yes: No Distress, Calm Cardiovascular: Yes: Regular Rate and Rhythm Respiratory: Yes: Regular, CTA Bilaterally Gastrointestinal: Yes: Normal Bowel Sounds, Soft Musculoskeletal: Yes: WNL Extremities: Yes: WNL Neurological: Yes: Alert, Oriented Psychiatric: Yes: Alert, Oriented Labs: CBC, BMP 12/21/17 11:15 12/21/17 11:15 Assessment/Plan pyelo hematuria ureteral stone flank pain hydronephrosis plan continue abx plan for or today was cancelled yesterday rest as per the team and urology
[2017-12-23] MEDS ORDERED: ONDANSETRON 4 MG/2 ML VIAL IVPUSH PRN (11:19)
[2017-12-23] MEDS ORDERED: PROMETHAZINE HCL 25 MG/1 ML VIAL IVPUSH PRN (11:19)
[2017-12-23] MEDS ORDERED: MIDAZOLAM HCL 2 MG/2 ML SINGLE DOSE VIAL ONE (11:25)
[2017-12-23] MEDS ORDERED: PROPOFOL 20 ML ONE (11:26)
[2017-12-23] MEDS ORDERED: LACTATED RINGERS SOLUTION 1,000 ML IV SCH (11:30)
[2017-12-23] MEDS ORDERED: LIDOCAINE HCL/PF 2% SDV 5ML VIAL ONE (11:33)
--- NOTE | 2017-12-23 11:39 | PN ---
Progress Note (short form) - Note Progress Note: UROLOGY NOTE. pt. with rt. jj stent and lt. upj stone, no hydronephrosis. h/o rec. utis and gross totel hematuria. Plan d/c rt jj stent and lull with jj stent. pt. explained the procedure and he agrees.
[2017-12-23] MEDS ORDERED: DEXAMETHASONE SOD PHOSPHATE 4 MG/1 ML VIAL ONE (11:43)
--- NOTE | 2017-12-23 12:09 | OP ---
Operative Note - Note: Operative Date: 12/23/17 Pre-Operative Diagnosis: rt. jj stent with rt. ureteral stone, lt. renal stone Operation: cysto, rt. stone retrieval and d/c of rt. jj stent.lt. jj stent placement Findings: rt. jj stent and lt. emmanuelle stone Post-Operative Diagnosis: Same as Pre-op Surgeon: Mago Bui Anesthesia: General Specimens Removed: rt. jj stent, and rt. renal stones Estimated Blood Loss (mls): 0 Drains & Tubes with Location: 24cm 6f lt. jj stent Drains, Volume Out (mls): 0 Blood Volume Replaced (mls): 0 Fluid Volume Replaced (mls): 0 Operative Report Dictated: Yes
[2017-12-23] MEDS: KETOROLAC TROMETHAMINE 30 MG/1 ML VIAL IVPUSH ONE ×2 (12:25→14:04)
--- NOTE | 2017-12-23 13:12 | OP ---
DATE OF OPERATION: 12/23/2017 SURGEON: Mago Bui MD PREOPERATIVE DIAGNOSIS: Left renal stone, right pyelonephritis status post right JJ stent, right mild hydronephrosis, and right renal pelvic stones. OPERATIVE PROCEDURE: Cystourethroscopy, removal of right JJ stent, retrieval of right renal stones, left retrograde pyelogram, and placement of a left JJ stent. ANESTHESIA: General. DESCRIPTION OF PROCEDURE: Under above stated anesthesia, patient was prepped and draped in the usual sterile manner. He was placed in the dorsal lithotomy position. Cystoscopy revealed a normal anterior urethra. Prostatic urethra was wide open. The bladder was entered. Urine was collected for culture and sensitivity. Inspection of the bladder revealed bullous edema of the trigone. A right JJ stent was seen protruding from the right ureteral orifice. There appeared to be chronic inflammatory changes surrounding the orifice. The stent was removed atraumatically. A retrograde pyelogram revealed a dilated right renal unit with multiple filling defect. Therefore, ureteroscopy was performed and multiple small stones were retrieved. No active bleeding was noted and no other stones were seen. Therefore, a left retrograde pyelogram was performed. This revealed a normal left renal unit. The patient does have history of a 7-mm stone in his left lower calyx. Therefore, a 24-cm 6-Yakut left JJ stent was left in place. X-rays confirmed good position of the stent. The bladder was emptied, the scope was removed. The patient tolerated the procedure well. He returned to the recovery room in good condition. Amee [id number]
[2017-12-23] MEDS ORDERED: morphine CARPU-JECT 2 MG/1 ML DISP.SYRIN IVPUSH PRN (17:47)
[2017-12-23] MEDS ORDERED: morphine SULFATE 4 MG/ML VIAL ONE (17:52)
--- NOTE | 2017-12-23 18:44 | PN ---
Progress Note, Physician - Current Medication List Current Medications: Active Medications Fentanyl (Sublimaze Injection -) 50 mcg IVPUSH [id number] PRN PRN Reason: PAIN-PACU ORDER X 4 DOSES ONLY Dextrose/Sodium Chloride (D5-1/2ns -) 1,000 mls @ 75 mls/hr IV ASDIR LEONARD Last Admin: 12/23/17 17:10 Dose: Not Given Piperacillin Sod/Tazobactam (Sod 3.375 gm/ Dextrose) 100 mls @ 200 mls/hr IVPB Q8H-IV LEONARD; Protocol Last Admin: 12/23/17 18:00 Dose: 200 mls/hr Morphine Sulfate (Morphine Injection -) 2 mg IVPUSH Q6H PRN PRN Reason: PAIN 4-6 Ondansetron HCl (Zofran Injection) 4 mg IVPUSH Q6H PRN PRN Reason: NAUSEA AND/OR VOMITING Promethazine HCl (Phenergan Injection -) 12.5 mg IVPUSH Q6H PRN PRN Reason: NAUSEA-FOR RESCUE AFTER 15 MIN - Objective Vital Signs: Vital Signs Temperature 97.8 F 12/23/17 16:34 Pulse Rate 78 12/23/17 16:34 Respiratory Rate 20 12/23/17 16:34 Blood Pressure 116/58 12/23/17 16:34 O2 Sat by Pulse Oximetry (%) 100 12/23/17 14:12 Labs: CBC, BMP 12/21/17 11:15 12/21/17 11:15
[2017-12-23] MEDS ORDERED: PT OWN MED DRAWER 7, Y5N ONE (21:33)
[2017-12-24] MEDS ORDERED: DEXTROSE 5%-WATER 100 ML IVPB ONE ×2 (01:08→09:59)
[2017-12-24] MEDS ORDERED: PIPERACILLIN/TAZOBACTAM 3.375 GM VIAL IVPB ONE ×2 (01:08→09:59)
[2017-12-24] MEDS: PIPERACILLIN/TAZOB 3.375 GM 3.375 GM in DEXTROSE 5%-WATER 100 ML IVPB SCH ×2 (01:11→10:21)
[2017-12-24] MEDS ORDERED: MORPHINE SULFATE 2 MG/ML VIAL IVPUSH PRN (10:02)
--- NOTE | 2017-12-24 11:10 | PN ---
Progress Note, Physician - Current Medication List Current Medications: Active Medications Fentanyl (Sublimaze Injection -) 50 mcg IVPUSH [id number] PRN PRN Reason: PAIN-PACU ORDER X 4 DOSES ONLY Dextrose/Sodium Chloride (D5-1/2ns -) 1,000 mls @ 75 mls/hr IV ASDIR LEONARD Last Admin: 12/23/17 17:10 Dose: Not Given Piperacillin Sod/Tazobactam (Sod 3.375 gm/ Dextrose) 100 mls @ 200 mls/hr IVPB Q8H-IV LEONARD; Protocol Last Admin: 12/24/17 10:21 Dose: 200 mls/hr Morphine Sulfate (Morphine Sulfate) 2 mg IVPUSH Q6H PRN PRN Reason: PAIN 4-6 Last Admin: 12/24/17 10:19 Dose: 2 mg Ondansetron HCl (Zofran Injection) 4 mg IVPUSH Q6H PRN PRN Reason: NAUSEA AND/OR VOMITING Promethazine HCl (Phenergan Injection -) 12.5 mg IVPUSH Q6H PRN PRN Reason: NAUSEA-FOR RESCUE AFTER 15 MIN - Objective Vital Signs: Vital Signs Temperature 98.1 F 12/24/17 07:16 Pulse Rate 75 12/24/17 07:16 Respiratory Rate 20 12/24/17 07:16 Blood Pressure 96/5 12/24/17 07:16 O2 Sat by Pulse Oximetry (%) 99 12/23/17 23:50 Labs: CBC, BMP 12/21/17 11:15 12/21/17 11:15
--- NOTE | 2017-12-24 11:13 | PN ---
Progress Note (short form) - Note Progress Note: UROLOGY NOTE 42 Y/O Male patient S/P Rt jj stent removal and Lt JJ stent insertion 12/23. doing well no pain no fever \. Plan: Discharge home with Cipro 500 mg Bid 1 WEEK will schedule Lt ESWL as outpatient RTC next Tuesday.
[2017-12-24 13:02] VITALS: PULSE 81; TEMP 98.2
[2017-12-24 14:32] VITALS: BP 110/98
--- NOTE | 2017-12-27 16:02 | PATH ---
Surgical Pathology Report Patient Name: BEBA FRY Med. Rec. #: [id number] /Age/Gender: 1975 (Age: 42) / M Account: [id number] Location: [facility] MED/SURG Taken: 12/23/2017 Received: 12/23/2017 Reported: 12/27/2017 Physicians: Mary Ellen Partida M.D. Specimen(s) Received RIGHT KIDNEY CALCULI Clinical History Hydronephrosis Final Diagnosis KIDNEY STONE, RIGHT, REMOVAL: RENAL CALCULI. MACROSCOPIC DIAGNOSIS. Electronically Signed Dolly Robertson M.D. Gross Description Received in formalin labeled "kidney stone right side," is a 0.4 x 0.3 x 0.1 cm aggregate of estrella, fragmented calculi. The formalin is drained and the specimen is dried and sent for chemical analysis. /12/23/201712/23/2017
[2018-01-03 14:14] LABS: CA OXALATE MONOHYDR. 94 % (.); WEIGHT 1.4 mg (.)
== END 2017-12-24 14:42 | disposition home or self-care (01) | DRG 443 ==
LOC: JER 18:01 → JERBED 22:34 → UNDOADMOB 23:21 → JERBED 12-20 02:25 → J8W 12-20 02:25 → OBSVTOIN 12-20 15:07
PROVIDERS: ADMIT Internal Medicine; ATTEND Internal Medicine
PROC: 0T778DZ Dilation of Left Ureter with Intraluminal Device, Via Natural or Artificial Opening Endoscopic (ICD-10-PCS; principal; 2017-12-23 10:00)
PROC: 0TP98DZ Removal of Intraluminal Device from Ureter, Via Natural or Artificial Opening Endoscopic (ICD-10-PCS; 2017-12-23 10:00)
PROC: BT1FYZZ Fluoroscopy of Left Kidney, Ureter and Bladder using Other Contrast (ICD-10-PCS; 2017-12-23 10:00)
PROC: 0TC08ZZ Extirpation of Matter from Right Kidney, Via Natural or Artificial Opening Endoscopic (ICD-10-PCS; 2017-12-23 10:00)
DX: N13.2 Hydronephrosis with renal and ureteral calculous obstruction (principal); R31.0 Gross hematuria; N12 Tubulo-interstitial nephritis, not specified as acute or chronic
CPT/HCPCS: 36415; 74176; 76000-TC-FY; 80053; 81003; 81015; 82360; 85025; 85027; 87086; 88300-TC; 93005; 93010; 94010; 94760; 99284-25; G0378